=== PATIENT | male | born 1995 | race Caucasian/White ===

== ENCOUNTER 2017-11-21 15:04 | Emergency (ER) | payer OTHER ==
[~2017-11-21] VITALS: Ht 182.9 cm; Wt 90.3 kg
[~2017-11-21 15:04] MED LIST: ADDERALL 20 MG20 M1; BENTYL 20 MG TA20 M1 PO; NORCO 5-325 TA1 EACH PO; PHENERGAN 25 MG25 MG PO; RISPERIDONE 00.25 M1 PO
[2017-11-21] MEDS ORDERED: FLEXERIL PO (16:11)
[2017-11-21] MEDS ORDERED: TORADOL 10 MG T10 MG PO (16:11)
[2017-11-21 16:20] VITALS: BP 127/71
== END 2017-11-21 16:21 | disposition home or self-care (01) ==
LOC: M.ERS 15:04
DX: S39.012A Strain of muscle, fascia and tendon of lower back, initial encounter (principal); J45.909 Unspecified asthma, uncomplicated; F90.9 Attention-deficit hyperactivity disorder, unspecified type; Z88.0 Allergy status to penicillin; V49.9XXA Car occupant (driver) (passenger) injured in unspecified traffic accident, initial encounter; Y93.89 Activity, other specified; Y92.89 Other specified places as the place of occurrence of the external cause; Y99.8 Other external cause status